=== PATIENT | male | born 1940 | race Caucasian/White ===

== ENCOUNTER 2025-01-08 22:32 | Inpatient (IN) | payer OTHER ==
[~2025-01-08] VITALS: Ht 187.9 cm; Wt 81.6 kg
[2025-01-08 22:35] VITALS: BP 130/74
[2025-01-08 23:11] VITALS: BP 117/94
[2025-01-08] MEDS ORDERED: ACETAMINOPHEN 325 MG TAB PO ONE (23:25)
[2025-01-08 23:27] LABS: BASO # 0.0 10*3/uL (0.0-0.1); BASO % 0.3 % (0.0-1.0); EOS # 0.1 10*3/uL (0.0-0.4); EOS % 0.5 % (1.0-4.0); MEAN CELL VOLUME 94.2 fl (80.0-94.0); MEAN CORPUSCULAR HGB 29.9 pg (27.0-31.0); MEAN PLATELET VOLUME 9.4 fl (9.6-12.3); MONO # 1.0 10*3/uL (0.1-1.0); MONO % 7.8 % (3.0-9.0); NEUT # 10.6 10*3/uL (2.3-7.9); NEUT % 86.9 % (47.0-73.0); NUCLEATED RED BLOOD CELL 0.0 % (0.0-0.0); NUCLEATED RED BLOOD CELL 0.0 10*3/uL (0.0-0.0); PLATELET COUNT AUTOMATED 113 10*3/uL (130-400); RED CELL DISTRI WIDTH 16.3 % (0-14.5)
[2025-01-08 23:46] LABS: BUN 24.0 mg/dl (9-23)
[2025-01-08] MEDS ORDERED: AZITHROMYCIN 250 ML IV ONE (23:55)
[2025-01-09] VITALS (10 sets, daily range): BP systolic 82–104; BP diastolic 43–74
[2025-01-09] MEDS ORDERED: POTASSIUM CHLO20 ME4 PO (00:40)
[2025-01-09] MEDS ORDERED: FUROSEMIDE40 MG PO (00:41)
[2025-01-09] MEDS ORDERED: PREDNISONE10 MG PO (00:42)
[2025-01-09] MEDS ORDERED: JARDIANCE10 MG PO (00:42)
[2025-01-09] MEDS ORDERED: METOPROLOL SUCC50 M1 PO (00:42)
[2025-01-09] MEDS ORDERED: ELIQUIS5 M1 PO (00:43)
[2025-01-09] MEDS ORDERED: OMEPRAZOLE MAGN20 MG PO (00:43)
[2025-01-09] MEDS ORDERED: ATORVASTATIN CA40 M1 PO (00:43)
[2025-01-09] MEDS ORDERED: Acetaminophen/Hydrocodone 5 MG/325 MG TABLET PO PRN (02:30)
[2025-01-09] MEDS ORDERED: ACETAMINOPHEN 650 MG SUPP R PRN (02:30)
[2025-01-09] MEDS ORDERED: ACETAMINOPHEN 325 MG TAB PO PRN (02:30)
[2025-01-09] MEDS ORDERED: BISACODYL 5 MG TAB PO PRN (02:30)
[2025-01-09] MEDS ORDERED: Ondansetron Hydrochloride 4 MG/2 ML VIAL IV PRN (02:30)
[2025-01-09] MEDS ORDERED: Dexamethasone Sodium Phospha 4 MG/ML VIAL IV SCH (02:45)
[2025-01-09] MEDS ORDERED: DEXTROSE 50% 25 GM/50 ML VIAL IV PRN (04:15)
[2025-01-09] MEDS ORDERED: FUROSEMIDE 20 MG/2 ML VIAL IV SCH (04:25)
[2025-01-09] MEDS ORDERED: NOREPINEPHRINE BITARTRATE/D5W 250 ML IV SCH (04:30)
[2025-01-09 05:22] LABS: BUN 29 mg/dl (9-23); FREE T4 1.09 ng/dl (0.89-1.76); LDL CHOLESTEROL 50 mg/dL (9-159); SGPT/ALT 14 U/L (5-49)
[2025-01-09 05:45] LABS: ABG BASE EXCESS 3.9 mmol/L (-2.0-3.0); ABG O2 SATURATION 99.5 % (94.0-98.0); ARTERIAL BLOOD GAS PH 7.447 (7.350-7.450); ARTERIAL BLOOD GAS PO2 235.7 mmHg (83.0-108.0)
[2025-01-09 06:09] LABS: BASO # 0.1 10*3/uL (0.0-0.1); BASO % 0.4 % (0.0-1.0); EOS # 0.0 10*3/uL (0.0-0.4); EOS % 0.3 % (1.0-4.0); MEAN CELL VOLUME 94.5 fl (80.0-94.0); MEAN CORPUSCULAR HGB 30.0 pg (27.0-31.0); MEAN PLATELET VOLUME 10.0 fl (9.6-12.3); MONO # 1.0 10*3/uL (0.1-1.0); MONO % 8.6 % (3.0-9.0); NEUT # 9.5 10*3/uL (2.3-7.9); NEUT % 85.2 % (47.0-73.0); NUCLEATED RED BLOOD CELL 0.0 % (0.0-0.0); NUCLEATED RED BLOOD CELL 0.0 10*3/uL (0.0-0.0); PLATELET COUNT AUTOMATED 110 10*3/uL (130-400); RED CELL DISTRI WIDTH 16.3 % (0-14.5)
[2025-01-09 06:18] LABS: ACT PARTIAL THROMBO TIME 28.5 SECONDS (20.0-32.1)
[2025-01-09 06:48] LABS: VITAMIN D, 25-HYDROXY 63.1 ng/mL (30-100)
[2025-01-09] MEDS ORDERED: INSULIN LISPRO 1 UNIT/0.01 ML SQ SCH (07:30)
[2025-01-09] MEDS ORDERED: REMDESIVIR 200 MG in SODIUM CHLORIDE 0.9% 210 ML IV ONE (08:00)
[2025-01-09 09:20] LABS: BILIRUBIN Negative (Negative); BLOOD Negative (Negative); CLARITY Clear (Clear); COLOR Yellow (Yellow); KETONE Negative (Negative); LEUKO ESTERASE Negative (Negative); NITRITE Negative (Negative); PH 6.5 (4.5-8.0); SPECIFIC GRAVITY <= 1.005 (1.001-1.030); UROBILINOGEN 1.0 E.U./dl (0.0-1.0)
[2025-01-09 09:40] LABS: EPITHELIAL CELLS 0-2
[2025-01-09] MEDS ORDERED: POTASSIUM CHLORIDE 20 MEQ TAB PO SCH (10:00)
[2025-01-09] MEDS ORDERED: APIXABAN 5 MG TAB PO SCH (10:00)
[2025-01-09] MEDS ORDERED: Hydrocortisone Sodium Succin 100 MG/2 ML VIAL IV SCH ×2 (18:00→22:00)
[2025-01-09] MEDS ORDERED: ATORVASTATIN CALCIUM 40 MG TABLET PO SCH (18:00)
[2025-01-09] MEDS ORDERED: AZITHROMYCIN 250 ML IV SCH (21:00)
[2025-01-10] VITALS: BP 103/67
[2025-01-10 04:00] VITALS: BP 112/78
[2025-01-10 07:49] LABS: MEAN CELL VOLUME 93.3 fl (80.0-94.0); MEAN CORPUSCULAR HGB 30.3 pg (27.0-31.0); MEAN PLATELET VOLUME 9.6 fl (9.6-12.3); NUCLEATED RED BLOOD CELL 0.0 % (0.0-0.0); NUCLEATED RED BLOOD CELL 0.0 10*3/uL (0.0-0.0); PLATELET COUNT AUTOMATED 120 10*3/uL (130-400); RED CELL DISTRI WIDTH 16.0 % (0-14.5)
[2025-01-10 08:00] VITALS: BP 116/79
[2025-01-10] MEDS ORDERED: REMDESIVIR 100 MG in SODIUM CHLORIDE 0.9% 230 ML IV SCH (08:00)
[2025-01-10 08:06] LABS: BUN 29 mg/dl (9-23)
[2025-01-10 08:19] LABS: MANUAL DIFF REFLEX YES
[2025-01-10 08:23] LABS: PLATELET SUFFICIENCY LOW (NORMAL)
[2025-01-10 12:00] VITALS: BP 105/70
[2025-01-10 16:00] VITALS: BP 103/64
[2025-01-10] MEDS ORDERED: METOPROLOL SUCC25 M2 PO (16:14)
[2025-01-10] MEDS ORDERED: PREDNISONE10 MG PO (17:53)
== END 2025-01-10 19:17 | disposition home or self-care (01) | DRG 871 ==
LOC: ED 22:32 → ICCU 01-09 00:47 → EDHOLD 01-09 00:47 → ICCU 01-09 03:08
PROVIDERS: Emergency Medicine; Internal Medicine Critical Care Medicine; ADMIT Internal Medicine; ATTEND Internal Medicine
PROC: 5A0935A Assistance with Respiratory Ventilation, Less than 24 Consecutive Hours, High Flow/Velocity Cannula (ICD-10-PCS; principal; 2025-01-09)
PROC: 02HV33Z Insertion of Infusion Device into Superior Vena Cava, Percutaneous Approach (ICD-10-PCS; 2025-01-09)
PROC: B548ZZA Ultrasonography of Superior Vena Cava, Guidance (ICD-10-PCS; 2025-01-09)
PROC: XW033E5 Introduction of Remdesivir Anti-infective into Peripheral Vein, Percutaneous Approach, New Technology Group 5 (ICD-10-PCS; 2025-01-09)
DX: A41.89 Other specified sepsis (principal); J12.82 Pneumonia due to coronavirus disease 2019; N17.0 Acute kidney failure with tubular necrosis; U07.1 COVID-19; R65.21 Severe sepsis with septic shock; J96.21 Acute and chronic respiratory failure with hypoxia; E87.20 Acidosis, unspecified; J44.0 Chronic obstructive pulmonary disease with (acute) lower respiratory infection; I42.9 Cardiomyopathy, unspecified; I48.21 Permanent atrial fibrillation; J84.9 Interstitial pulmonary disease, unspecified; J91.8 Pleural effusion in other conditions classified elsewhere; I50.9 Heart failure, unspecified; E78.5 Hyperlipidemia, unspecified; I11.0 Hypertensive heart disease with heart failure; E11.65 Type 2 diabetes mellitus with hyperglycemia; J84.10 Pulmonary fibrosis, unspecified; J47.9 Bronchiectasis, uncomplicated; R59.0 Localized enlarged lymph nodes; N28.1 Cyst of kidney, acquired; K44.9 Diaphragmatic hernia without obstruction or gangrene; D69.59 Other secondary thrombocytopenia; Z88.8 Allergy status to other drugs, medicaments and biological substances; Z91.018 Allergy to other foods; Z91.09 Other allergy status, other than to drugs and biological substances; Z79.899 Other long term (current) drug therapy; Z95.810 Presence of automatic (implantable) cardiac defibrillator; Z79.01 Long term (current) use of anticoagulants; Z79.2 Long term (current) use of antibiotics; Z90.49 Acquired absence of other specified parts of digestive tract

== ENCOUNTER 2025-02-20 11:58 | Inpatient (IN) | payer OTHER ==
[~2025-02-20] VITALS: Ht 187.9 cm; Wt 85.5 kg
[~2025-02-20 11:58] MED LIST: ATORVASTATIN CA40 M1 PO; ELIQUIS5 M1 PO; FUROSEMIDE40 MG PO; JARDIANCE10 MG PO; METOPROLOL SUCC25 M2 PO; METOPROLOL SUCC50 M1 PO; OMEPRAZOLE MAGN20 MG PO; POTASSIUM CHLO20 ME4 PO; PREDNISONE10 MG PO
[2025-02-20 12:14] VITALS: BP 88/54
[2025-02-20] MEDS ORDERED: SODIUM CHLORIDE 0.9% 1,000 ML IV ONE (12:30)
[2025-02-20 12:53] LABS: BASO # 0.1 10*3/uL (0.0-0.1); BASO % 0.4 % (0.0-1.0); EOS # 0.1 10*3/uL (0.0-0.4); EOS % 1.1 % (1.0-4.0); MEAN CELL VOLUME 97.5 fl (80.0-94.0); MEAN CORPUSCULAR HGB 29.9 pg (27.0-31.0); MEAN PLATELET VOLUME 9.4 fl (9.6-12.3); MONO # 1.0 10*3/uL (0.1-1.0); MONO % 8.3 % (3.0-9.0); NEUT # 9.6 10*3/uL (2.3-7.9); NEUT % 84.8 % (47.0-73.0); NUCLEATED RED BLOOD CELL 0.0 % (0.0-0.0); NUCLEATED RED BLOOD CELL 0.0 10*3/uL (0.0-0.0); PLATELET COUNT AUTOMATED 192 10*3/uL (130-400); RED CELL DISTRI WIDTH 16.6 % (0-14.5)
[2025-02-20 13:17] LABS: BUN 22 mg/dl (9-23); CPK 35 U/L (34-171); SGPT/ALT 20 U/L (5-49)
[2025-02-20 14:41] LABS: BILIRUBIN Negative (Negative); BLOOD Negative (Negative); CLARITY Clear (Clear); COLOR Yellow (Yellow); KETONE Negative (Negative); LEUKO ESTERASE Negative (Negative); NITRITE Negative (Negative); PH 6.5 (4.5-8.0); SPECIFIC GRAVITY 1.025 (1.001-1.030); UROBILINOGEN 1.0 E.U./dl (0.0-1.0)
[2025-02-20] MEDS ORDERED: ACETAMINOPHEN 650 MG SUPP R PRN (16:20)
[2025-02-20] MEDS ORDERED: ACETAMINOPHEN 325 MG TAB PO PRN (16:20)
[2025-02-20] MEDS ORDERED: BISACODYL 5 MG TAB PO PRN (16:20)
[2025-02-20] MEDS ORDERED: BISACODYL 10 MG SUPP R PRN (16:20)
[2025-02-20] MEDS ORDERED: SODIUM CHLORIDE 0.9% 500 ML IV ONE (16:30)
[2025-02-20] MEDS ORDERED: ALBUMIN 5% 250 ML IV ONE ×2 (17:40→17:45)
[2025-02-20] MEDS ORDERED: APIXABAN 5 MG TAB PO SCH (18:00)
[2025-02-20] MEDS ORDERED: ALBUMIN 5% 250 ML IV SCH (18:00)
[2025-02-20 19:46] VITALS: BP 95/64
[2025-02-20 21:59] VITALS: BP 106/71
[2025-02-21] VITALS: BP 106/68
[2025-02-21 05:37] LABS: BUN 20 mg/dl (9-23)
[2025-02-21 06:02] LABS: BASO # 0.1 10*3/uL (0.0-0.1); BASO % 0.4 % (0.0-1.0); EOS # 0.1 10*3/uL (0.0-0.4); EOS % 0.9 % (1.0-4.0); MEAN CELL VOLUME 98.1 fl (80.0-94.0); MEAN CORPUSCULAR HGB 30.0 pg (27.0-31.0); MEAN PLATELET VOLUME 10.0 fl (9.6-12.3); MONO # 1.1 10*3/uL (0.1-1.0); MONO % 8.3 % (3.0-9.0); NEUT # 10.3 10*3/uL (2.3-7.9); NEUT % 80.6 % (47.0-73.0); NUCLEATED RED BLOOD CELL 0.0 % (0.0-0.0); NUCLEATED RED BLOOD CELL 0.0 10*3/uL (0.0-0.0); PLATELET COUNT AUTOMATED 183 10*3/uL (130-400); RED CELL DISTRI WIDTH 16.5 % (0-14.5)
[2025-02-21 06:18] LABS: ACT PARTIAL THROMBO TIME 29.9 SECONDS (20.0-32.1)
[2025-02-21 09:00] VITALS: BP 102/58
[2025-02-21 12:00] VITALS: BP 96/64
[2025-02-21] MEDS ORDERED: FUROSEMIDE 20 MG/2 ML VIAL IV ONE (14:30)
[2025-02-21 16:00] VITALS: BP 141/85
[2025-02-21] MEDS ORDERED: ATORVASTATIN CALCIUM 40 MG TABLET PO SCH (18:00)
[2025-02-21 21:30] VITALS: BP 115/57
[2025-02-22] VITALS: BP 120/60
[2025-02-22 04:35] LABS: BASO # 0.0 10*3/uL (0.0-0.1); BASO % 0.3 % (0.0-1.0); EOS # 0.0 10*3/uL (0.0-0.4); EOS % 0.3 % (1.0-4.0); MEAN CORPUSCULAR HGB 30.3 pg (27.0-31.0); MEAN PLATELET VOLUME 9.7 fl (9.6-12.3); MONO # 1.4 10*3/uL (0.1-1.0); MONO % 9.6 % (3.0-9.0); NEUT # 12.1 10*3/uL (2.3-7.9); NEUT % 84.3 % (47.0-73.0); NUCLEATED RED BLOOD CELL 0.0 % (0.0-0.0); NUCLEATED RED BLOOD CELL 0.0 10*3/uL (0.0-0.0); PLATELET COUNT AUTOMATED 162 10*3/uL (130-400); RED CELL DISTRI WIDTH 16.4 % (0-14.5)
[2025-02-22 04:36] LABS: MEAN CELL VOLUME 94.9 fl (80.0-94.0)
[2025-02-22 04:52] LABS: BUN 17 mg/dl (9-23)
[2025-02-22] MEDS ORDERED: Albuterol Sulf/Ipratropium 3 ML VIAL NEB PRN (07:50)
[2025-02-22 08:00] VITALS: BP 127/70
[2025-02-22] MEDS ORDERED: FUROSEMIDE 20 MG/2 ML VIAL IV ONE (09:25)
[2025-02-22 12:00] VITALS: BP 108/68
[2025-02-22] MEDS ORDERED: Hydrocortisone Sodium Succin 100 MG/2 ML VIAL IV ONE (13:45)
[2025-02-22 16:00] VITALS: BP 120/76
[2025-02-22 20:00] VITALS: BP 110/71
[2025-02-22] MEDS ORDERED: Hydrocortisone Sodium Succin 100 MG/2 ML VIAL IV SCH (20:00)
[2025-02-22] MEDS ORDERED: ASPIRIN 325 MG ENTERIC COATED PO ONE (20:05)
[2025-02-22] MEDS ORDERED: IOHEXOL 350 MG/ML 100 ML VIAL IV ONE ×2 (20:20→21:01)
[2025-02-22] MEDS ORDERED: SODIUM CHLORIDE 0.9% 100 ML BAG IV ONE (20:20)
[2025-02-22] MEDS ORDERED: SODIUM CHLORIDE 0.9% 100 ML IV ONE (21:01)
[2025-02-23] VITALS: BP 128/77
[2025-02-23 05:17] LABS: BUN 19 mg/dl (9-23)
[2025-02-23 06:32] LABS: MEAN CELL VOLUME 95.9 fl (80.0-94.0); MEAN CORPUSCULAR HGB 30.1 pg (27.0-31.0); MEAN PLATELET VOLUME 10.6 fl (9.6-12.3); NUCLEATED RED BLOOD CELL 0.0 % (0.0-0.0); NUCLEATED RED BLOOD CELL 0.0 10*3/uL (0.0-0.0); PLATELET COUNT AUTOMATED 174 10*3/uL (130-400); RED CELL DISTRI WIDTH 16.4 % (0-14.5)
[2025-02-23 06:36] LABS: MANUAL DIFF REFLEX YES
[2025-02-23 07:19] LABS: VACUOLATION OF NEUTROPHILS SLIGHT
[2025-02-23 07:20] LABS: PLATELET SUFFICIENCY NORMAL (NORMAL)
[2025-02-23] MEDS ORDERED: OMEPRAZOLE 20 MG CAP PO SCH (07:30)
[2025-02-23 08:00] VITALS: BP 105/69
[2025-02-23] MEDS ORDERED: ASPIRIN ENTERIC COATED 81 MG TAB PO SCH (10:00)
[2025-02-23 12:00] VITALS: BP 117/65
[2025-02-23 16:00] VITALS: BP 119/80
[2025-02-23 20:00] VITALS: BP 116/78
[2025-02-23] MEDS ORDERED: GUAIFENESIN 600 MG TAB ER PO SCH (22:00)
[2025-02-24] VITALS: BP 125/81
[2025-02-24 08:00] VITALS: BP 111/68
[2025-02-24] MEDS ORDERED: predniSONE 10 MG TAB PO SCH (10:00)
[2025-02-24 12:00] VITALS: BP 104/70
[2025-02-24 16:00] VITALS: BP 116/77
[2025-02-24 20:00] VITALS: BP 117/76
[2025-02-25] VITALS: BP 118/82
[2025-02-25 06:49] LABS: BASO # 0.0 10*3/uL (0.0-0.1); BASO % 0.1 % (0.0-1.0); EOS # 0.3 10*3/uL (0.0-0.4); EOS % 2.5 % (1.0-4.0); MEAN CELL VOLUME 95.9 fl (80.0-94.0); MEAN CORPUSCULAR HGB 29.4 pg (27.0-31.0); MEAN PLATELET VOLUME 10.0 fl (9.6-12.3); MONO # 1.0 10*3/uL (0.1-1.0); MONO % 7.9 % (3.0-9.0); NEUT # 10.4 10*3/uL (2.3-7.9); NEUT % 81.0 % (47.0-73.0); NUCLEATED RED BLOOD CELL 0.0 % (0.0-0.0); NUCLEATED RED BLOOD CELL 0.0 10*3/uL (0.0-0.0); PLATELET COUNT AUTOMATED 208 10*3/uL (130-400); RED CELL DISTRI WIDTH 16.4 % (0-14.5)
[2025-02-25 06:51] LABS: BUN 20 mg/dl (9-23)
[2025-02-25 08:00] VITALS: BP 113/64
[2025-02-25] MEDS ORDERED: ASPIRIN ADULT L81 M2 PO (08:31)
[2025-02-25] MEDS ORDERED: VIBRAMYCIN100 MG PO (08:32)
[2025-02-25] MEDS ORDERED: OMNICEF300 MG PO (08:34)
[2025-02-25] MEDS ORDERED: FUROSEMIDE40 MG PO (08:40)
[2025-02-25] MEDS ORDERED: LASIX40 MG PO (09:39)
== END 2025-02-25 10:22 | disposition home or self-care (01) | DRG 871 ==
LOC: ED 11:58 → EDHOLD 15:37 → 4E 15:37
PROVIDERS: Emergency Medicine; Registered Nurse; ADMIT Internal Medicine; ATTEND Internal Medicine
DX: A41.9 Sepsis, unspecified organism (principal); J15.69 Pneumonia due to other Gram-negative bacteria; N17.0 Acute kidney failure with tubular necrosis; J96.21 Acute and chronic respiratory failure with hypoxia; E87.20 Acidosis, unspecified; E86.0 Dehydration; J84.10 Pulmonary fibrosis, unspecified; Z20.822 Contact with and (suspected) exposure to COVID-19; E88.09 Other disorders of plasma-protein metabolism, not elsewhere classified; I50.9 Heart failure, unspecified; I11.0 Hypertensive heart disease with heart failure; K21.9 Gastro-esophageal reflux disease without esophagitis; E78.5 Hyperlipidemia, unspecified; I95.9 Hypotension, unspecified; E11.65 Type 2 diabetes mellitus with hyperglycemia; H53.8 Other visual disturbances; Z79.899 Other long term (current) drug therapy; Z79.01 Long term (current) use of anticoagulants; Z79.2 Long term (current) use of antibiotics; Z90.49 Acquired absence of other specified parts of digestive tract; Z81.1 Family history of alcohol abuse and dependence